=== PATIENT | female | born 1975 | race Caucasian/White ===

== ENCOUNTER 2016-08-24 13:40 | Emergency (ER) | payer MEDICARE | END 2016-08-24 14:30 | disposition home or self-care (01) | LOC: ER1 13:40 | DX: J01.90 Acute sinusitis, unspecified (principal); I10 Essential (primary) hypertension; G43.909 Migraine, unspecified, not intractable, without status migrainosus; Z88.0 Allergy status to penicillin; Z88.2 Allergy status to sulfonamides; Z79.899 Other long term (current) drug therapy | CPT/HCPCS: 99282 ==